=== PATIENT | male | born 1960 | race Two or more races ===

== ENCOUNTER 2021-12-26 08:40 | Emergency (ER) | payer MEDICAID ==
[~2021-12-26] VITALS: Ht 162.6 cm; Wt 76.7 kg
[2021-12-26 10:18] LABS: Albumin 3.8 g/dL (3.4-5.0); Calcium 9.4 mg/dL (8.5-10.1); Potassium 3.4 mmol/L (3.5-5.1)
[2021-12-26 10:22] LABS: Bilirubin, Total 0.5 mg/dL (0.2-1.0)
[2021-12-26 10:25] LABS: Basophils # (auto) 0.1 10 ^3/uL (0-0.2); Basophils % (auto) 0.4 % (0.0-2.0); Eosinophils # (auto) 0.1 10 ^3/uL (0-0.8); Eosinophils % (auto) 0.5 % (0.0-7.0); Hematocrit 45.8 % (41.0-53.0); Hemoglobin 14.9 g/dL (13.5-17.5); Lymphocytes # (auto) 1.2 10 ^3/uL (0.4-5.4); Lymphocytes % (auto) 8.2 % (10.0-50.0); Mean Corpuscular Hemoglobin 28.6 pg (28.0-32.0); Mean Corpuscular Hgb Conc. 32.4 g/dL (32.0-36.0); Monocytes # (auto) 1.1 10 ^3/uL (0-1.3); Monocytes % (auto) 7.1 % (0.0-12.0); Neutrophils # (auto) 12.6 10 ^3/uL (1.6-8.6); Neutrophils % (auto) 83.8 % (37.0-80.0); Nucleated Red Blood Cells % 0.1 %; Red Cell Distribution Width 15.8 % (11.8-14.3); White Blood Cell 15.1 10^3/uL (4.4-10.8)
[2021-12-26 10:32] LABS: BUN/Creatinine Ratio 8.4
[2021-12-26] MEDS ORDERED: CEPH-509 PO (11:29)
[2021-12-26 13:58] VITALS: BP 150/80
[2021-12-26] MEDS ORDERED: POTASSIUM EFFERVESENT TAB 25 MEQ PO ONE (14:00)
[2021-12-26] MEDS ORDERED: HYDROcodone-ACET 10/325MG TAB PO ONE (14:30)
== END 2021-12-26 15:08 | disposition left against medical advice (07) ==
LOC: ER 08:40
DX: R51.9 Headache, unspecified (principal); I10 Essential (primary) hypertension; E87.6 Hypokalemia; E11.65 Type 2 diabetes mellitus with hyperglycemia; Z79.899 Other long term (current) drug therapy
CPT/HCPCS: 36415; 70450; 80053; 84484; 85025